=== PATIENT | female | born 1965 | race African-American/Black ===

== ENCOUNTER 2018-12-22 16:29 | Inpatient (IN) | payer MEDICAID, OTHER ==
[~2018-12-22] VITALS: Ht 185.4 cm; Wt 75.3 kg
[2018-12-22] MEDS ORDERED: METHYLPREDNISOLONE SOD SUCC 125 MG/2 ML VIAL IV STA (18:13)
[2018-12-22] MEDS ORDERED: LEVOFLOXACIN 750MG PREMIX 150 ML IV ONE (18:15)
[2018-12-22] MEDS ORDERED: IPRATROPIUM/ALBUTEROL 0.5-3(2.5)MG/3ML NEB HHN ONE (18:15)
[2018-12-22 19:49] LABS: BASOPHILS % 0.6 % (0.0-2.0); EOSINOPHILS % 2.2 % (0.0-5.0); HEMATOCRIT. 39.1 % (36.0-48.0); HEMOGLOBIN. 12.8 g/dL (12.0-16.0); LYMPHOCYTES % 31.8 % (20.0-50.0); MEAN CORPUSCULAR HEMOGLOBIN 28.6 pg (28.0-32.0); MEAN CORPUSCULAR VOLUME 87.6 fL (81.0-99.0); MEAN PLATELET VOLUME 7.7 fl (7.4-10.4); MONOCYTES % 7.5 % (2.0-8.0); NEUTROPHILS % 57.9 % (40.0-76.0); PLATELET 281 x1000/uL (130-400); RED BLOOD CELL COUNT 4.46 mill/uL (4.2-5.4); RED CELL DISTRIBUTION WIDTH 14.1 % (11.6-14.6)
[2018-12-22 19:55] LABS: CHLORIDE 108 mEq/L (98-107)
[2018-12-22 19:56] LABS: PROTHROMBIN TIME 10.7 sec (9.6-11.0)
[2018-12-22 20:00] LABS: CLARITY URINE CLEAR (CLEAR); COLOR URINE YELLOW (YELLOW); KETONES URINE NEGATIVE (NEGATIVE); LEUKOCYTE ESTERASE URINE 2+ (NEGATIVE); NITRITE URINE NEGATIVE (NEGATIVE); OCCULT BLOOD URINE NEGATIVE (NEGATIVE); PH URINE 5.5 (4.5-8.0); PROTEIN URINE NEGATIVE (NEGATIVE); SPECIFIC GRAVITY URINE 1.015 (1.005-1.030)
[2018-12-22 20:02] LABS: ETHANOL BLOOD < 10 mg/dL
[2018-12-22 20:37] LABS: *AMPHETAMINES SCREEN URINE NEGATIVE (NEGATIVE); *BARBITURATES SCREEN URINE NEGATIVE (NEGATIVE); *BENZODIAZEPINES SCREEN URINE NEGATIVE (NEGATIVE); *COCAINE SCREEN URINE NEGATIVE (NEGATIVE); METHADONE URINE SCREEN NEGATIVE (NEGATIVE)
[2018-12-22 20:38] LABS: CANNABINOID URINE SCREEN NEGATIVE (NEGATIVE); OPIATES URINE SCREEN NEGATIVE (NEGATIVE); PHENCYCLIDINE URINE SCREEN NEGATIVE (NEGATIVE)
[2018-12-22] MEDS ORDERED: MORPHINE SULFATE 4 MG/ML CPJ (NOT FOR IM USE) IV ONE (22:30)
[2018-12-22] MEDS ORDERED: ONDANSETRON HCL 4MG/2ML INJ IV ONE (22:30)
[2018-12-23 00:45] VITALS: BP 142/77
[2018-12-23 01:00] VITALS: BP 142/77
[2018-12-23] MEDS ORDERED: ALBU90AE INH (01:59)
[2018-12-23] MEDS ORDERED: OMEP20CA5 PO (01:59)
[2018-12-23] MEDS ORDERED: BECL10.62 INH (01:59)
[2018-12-23] MEDS ORDERED: POLY17PO3 MT (01:59)
[2018-12-23] MEDS ORDERED: GABA-531 PO (01:59)
[2018-12-23 04:00] VITALS: BP 134/78
[2018-12-23] MEDS ORDERED: DEXTROSE 50% WATER 50ML SYRINGE IV PRN (05:15)
[2018-12-23] MEDS ORDERED: IPRATROPIUM/ALBUTEROL 0.5-3(2.5)MG/3ML NEB HHN PRN (05:15)
[2018-12-23] MEDS: METHYLPREDNISOLONE SOD SUCC 40 MG/ML VIAL IV SCH ×3 (05:32→20:43)
[2018-12-23] MEDS: HYDROCODONE/ACETAMINOPHEN 5/325MG TABLET PO PRN ×2 (05:38→09:36)
[2018-12-23] MEDS: BLOOD SUGAR DIAGNOSTIC STRIP TEST SCH ×4 (06:45→20:53)
[2018-12-23] MEDS: PANTOPRAZOLE 40MG DR TABLET PO SCH (06:45)
[2018-12-23] MEDS: INSULIN LISPRO 100 UNITS/ML SUBCUT SCH ×4 (06:46→20:53)
[2018-12-23 08:00] VITALS: BP 128/71
[2018-12-23] MEDS: ENOXAPARIN 40MG/0.4ML SYR SUBCUT SCH (08:50)
[2018-12-23] MEDS ORDERED: REGADENOSON 0.4 MG/5 ML IV NR (09:30)
[2018-12-23] MEDS ORDERED: REGADENOSON 0.4 MG/5 ML IV ONE (11:11)
[2018-12-23 13:55] LABS: CREATINE KINASE 102 IU/L (26-192)
[2018-12-23 16:41] VITALS: BP 146/84
[2018-12-23 18:29] LABS: CREATINE KINASE MB FRACTION < 1.0 ng/mL (0.5-3.6)
[2018-12-23 20:00] VITALS: BP 119/72
[2018-12-23] MEDS ORDERED: IBUP-2030 MT (20:26)
[2018-12-24] VITALS: BP 122/72
[2018-12-24 00:50] LABS: CREATINE KINASE 79 IU/L (26-192)
[2018-12-24 04:00] VITALS: BP 122/74
[2018-12-24] MEDS: HYDROCODONE/ACETAMINOPHEN 5/325MG TABLET PO PRN (04:49)
[2018-12-24] MEDS: METHYLPREDNISOLONE SOD SUCC 40 MG/ML VIAL IV SCH ×2 (06:25→13:54)
[2018-12-24] MEDS: PANTOPRAZOLE 40MG DR TABLET PO SCH (06:25)
[2018-12-24] MEDS: INSULIN LISPRO 100 UNITS/ML SUBCUT SCH ×2 (06:45→12:40)
[2018-12-24] MEDS: BLOOD SUGAR DIAGNOSTIC STRIP TEST SCH ×2 (06:45→12:10)
[2018-12-24 08:00] VITALS: BP 122/77
[2018-12-24] MEDS: ENOXAPARIN 40MG/0.4ML SYR SUBCUT SCH (08:22)
[2018-12-24] MEDS: ACETAMINOPHEN 325MG TABLET PO PRN ×2 (10:49→16:19)
[2018-12-24 12:00] VITALS: BP 137/76
[2018-12-24 12:42] VITALS: BP 136/85
[2018-12-25] MEDS ORDERED: FAMOTIDINE 20MG TABLET PO SCH (09:00)
== END 2018-12-24 16:52 | disposition home or self-care (01) | DRG 198 ==
LOC: ER 16:29 → 8WST 22:19 → EDBEDREQ 22:24 → EDBEDREQTM 22:24 → ENRESERV 23:38
PROVIDERS: ADMIT Internal Medicine; ATTEND Internal Medicine
DX: I24.9 Acute ischemic heart disease, unspecified (principal); J43.9 Emphysema, unspecified; M06.9 Rheumatoid arthritis, unspecified; Z79.51 Long term (current) use of inhaled steroids; Z87.891 Personal history of nicotine dependence; Z79.899 Other long term (current) drug therapy
CPT/HCPCS: 36415; 71045; 78452; 80061; 80305; 80320; 81003; 82550; 82553; 82962; 83605; 83735; 83880; 84443; 84484; 93005; 93017; 93306; 94640; 99285; A9500; J1650; J1956; J2270; J2405; J2785; J2920; J2930; J7620; G0480

== ENCOUNTER 2018-12-28 08:18 | Inpatient (IN) | payer MEDICAID ==
[~2018-12-28] VITALS: Ht 185.4 cm; Wt 74.8 kg
[~2018-12-28 08:18] MED LIST: ALBU90AE INH; BECL10.62 INH; GABA-531 PO; IBUP-2030 MT; OMEP20CA5 PO; POLY17PO3 MT
[2018-12-28] MEDS ORDERED: IPRATROPIUM BROMIDE (0.02%) 0.5MG/2.5ML NEB HHN STA (08:21)
[2018-12-28] MEDS ORDERED: METHYLPREDNISOLONE SOD SUCC 125 MG/2 ML VIAL IV STA (08:21)
[2018-12-28] MEDS ORDERED: ALBUTEROL (0.083%) 2.5MG/3ML NEB HHN STA (08:21)
[2018-12-28 08:46] LABS: BASOPHILS % 1.5 % (0.0-2.0); EOSINOPHILS % 3.1 % (0.0-5.0); HEMATOCRIT. 37.9 % (36.0-48.0); HEMOGLOBIN. 12.6 g/dL (12.0-16.0); LYMPHOCYTES % 38.4 % (20.0-50.0); MEAN CORPUSCULAR HEMOGLOBIN 28.7 pg (28.0-32.0); MEAN CORPUSCULAR VOLUME 86.4 fL (81.0-99.0); MEAN PLATELET VOLUME 7.2 fl (7.4-10.4); MONOCYTES % 7.2 % (2.0-8.0); NEUTROPHILS % 49.8 % (40.0-76.0); PLATELET 277 x1000/uL (130-400); RED BLOOD CELL COUNT 4.38 mill/uL (4.2-5.4); RED CELL DISTRIBUTION WIDTH 14.4 % (11.6-14.6)
[2018-12-28 09:11] LABS: CHLORIDE 109 mEq/L (98-107)
[2018-12-28] MEDS ORDERED: MAGNESIUM 2 G PREMIX 50 ML IV STA (10:16)
[2018-12-28] MEDS ORDERED: BUDESONIDE 0.5MG/2ML NEB HHN SCH (12:00)
[2018-12-28] MEDS ORDERED: ONDANSETRON HCL 4MG/2ML INJ IV PRN (12:00)
[2018-12-28] MEDS ORDERED: IPRATROPIUM/ALBUTEROL 0.5-3(2.5)MG/3ML NEB HHN PRN (12:00)
[2018-12-28] MEDS ORDERED: IPRATROPIUM/ALBUTEROL 0.5-3(2.5)MG/3ML NEB HHN SCH (12:00)
[2018-12-28 16:00] VITALS: BP 137/73
[2018-12-28 16:43] VITALS: BP 137/73
[2018-12-28] MEDS ORDERED: MONTELUKAST SODIUM 10MG TABLET PO SCH (19:00)
[2018-12-28] MEDS: GABAPENTIN 300MG CAPSULE PO SCH (23:09)
[2018-12-28] MEDS: ENOXAPARIN 40MG/0.4ML SYR SUBCUT SCH (23:10)
[2018-12-28] MEDS: ACETAMINOPHEN 325MG TABLET PO PRN (23:15)
[2018-12-29] VITALS: BP 112/67
[2018-12-29] MEDS: BUDESONIDE 0.5MG/2ML NEB HHN SCH ×3 (00:22→21:18)
[2018-12-29] MEDS: IPRATROPIUM/ALBUTEROL 0.5-3(2.5)MG/3ML NEB HHN SCH ×6 (00:23→21:19)
[2018-12-29 04:00] VITALS: BP 110/60
[2018-12-29 05:51] LABS: BASOPHILS % 0.4 % (0.0-2.0); HEMATOCRIT. 38.3 % (36.0-48.0); HEMOGLOBIN. 12.6 g/dL (12.0-16.0); LYMPHOCYTES % 8.6 % (20.0-50.0); MEAN CORPUSCULAR HEMOGLOBIN 28.6 pg (28.0-32.0); MEAN CORPUSCULAR VOLUME 86.9 fL (81.0-99.0); MEAN PLATELET VOLUME 7.9 fl (7.4-10.4); MONOCYTES % 5.3 % (2.0-8.0); NEUTROPHILS % 85.7 % (40.0-76.0); PLATELET 306 x1000/uL (130-400); RED CELL DISTRIBUTION WIDTH 14.8 % (11.6-14.6)
[2018-12-29 06:03] LABS: CHLORIDE 108 mEq/L (98-107)
[2018-12-29 07:46] VITALS: BP 120/70
[2018-12-29] MEDS: ACETAMINOPHEN 325MG TABLET PO PRN (10:08)
[2018-12-29 12:00] VITALS: BP 100/75
[2018-12-29 16:00] VITALS: BP 118/68
[2018-12-29 20:00] VITALS: BP 99/55
[2018-12-29] MEDS: GABAPENTIN 300MG CAPSULE PO SCH (21:12)
[2018-12-29] MEDS: ENOXAPARIN 40MG/0.4ML SYR SUBCUT SCH (21:13)
[2018-12-30] VITALS: BP 94/55
[2018-12-30] MEDS: IPRATROPIUM/ALBUTEROL 0.5-3(2.5)MG/3ML NEB HHN SCH ×7 (00:25→23:53)
[2018-12-30 04:00] VITALS: BP 124/79
[2018-12-30 06:53] LABS: BASOPHILS % 0.3 % (0.0-2.0); EOSINOPHILS % 1.4 % (0.0-5.0); HEMATOCRIT. 37.3 % (36.0-48.0); HEMOGLOBIN. 12.4 g/dL (12.0-16.0); LYMPHOCYTES % 34.5 % (20.0-50.0); MEAN CORPUSCULAR HEMOGLOBIN 28.8 pg (28.0-32.0); MEAN CORPUSCULAR VOLUME 86.7 fL (81.0-99.0); MEAN PLATELET VOLUME 7.7 fl (7.4-10.4); MONOCYTES % 6.7 % (2.0-8.0); NEUTROPHILS % 57.1 % (40.0-76.0); PLATELET 288 x1000/uL (130-400); RED CELL DISTRIBUTION WIDTH 14.8 % (11.6-14.6)
[2018-12-30 08:00] VITALS: BP 101/65
[2018-12-30 08:22] LABS: CHLORIDE 107 mEq/L (98-107)
[2018-12-30] MEDS: BUDESONIDE 0.5MG/2ML NEB HHN SCH ×2 (10:33→19:57)
[2018-12-30 11:27] VITALS: BP 117/77
[2018-12-30 15:57] VITALS: BP 100/54
[2018-12-30] MEDS: HYDROCODONE/ACETAMINOPHEN 5/325MG TABLET PO PRN (16:54)
[2018-12-30 20:00] VITALS: BP 108/59
[2018-12-30] MEDS: GABAPENTIN 300MG CAPSULE PO SCH (21:26)
[2018-12-30] MEDS: ENOXAPARIN 40MG/0.4ML SYR SUBCUT SCH (21:26)
[2018-12-31] VITALS: BP 115/75
[2018-12-31] MEDS: HYDROCODONE/ACETAMINOPHEN 5/325MG TABLET PO PRN (03:30)
[2018-12-31 04:00] VITALS: BP 114/71
[2018-12-31] MEDS: IPRATROPIUM/ALBUTEROL 0.5-3(2.5)MG/3ML NEB HHN SCH ×4 (04:01→16:27)
[2018-12-31 08:00] VITALS: BP 110/71
[2018-12-31] MEDS: BUDESONIDE 0.5MG/2ML NEB HHN SCH (09:29)
[2018-12-31 10:29] LABS: BASOPHILS % 0.6 % (0.0-2.0); EOSINOPHILS % 2.4 % (0.0-5.0); HEMATOCRIT. 37.7 % (36.0-48.0); HEMOGLOBIN. 12.5 g/dL (12.0-16.0); MEAN CORPUSCULAR HEMOGLOBIN 28.9 pg (28.0-32.0); MEAN CORPUSCULAR VOLUME 87.3 fL (81.0-99.0); MEAN PLATELET VOLUME 7.6 fl (7.4-10.4); PLATELET 290 x1000/uL (130-400); RED BLOOD CELL COUNT 4.31 mill/uL (4.2-5.4); RED CELL DISTRIBUTION WIDTH 14.7 % (11.6-14.6)
[2018-12-31 11:10] LABS: CHLORIDE 108 mEq/L (98-107)
[2018-12-31 12:00] VITALS: BP 123/80
[2018-12-31 16:00] VITALS: BP 105/64
[2018-12-31 18:13] VITALS: BP 105/64
[2018-12-31 19:08] LABS: ANTI-NUCLEAR ANTIBODIES DIRECT Negative (Negative)
[2019-01-01 13:06] LABS: ANTI-MYELOPEROXIDASE AB < 9.0 U/mL (0.0-9.0); ANTI-PROTEINASE 3 ABS 5.3 U/mL (0.0-3.5); ATYPICAL P-ANCA <1:20 titer (Neg:<1:20); CYTOPLASMIC C-ANCA <1:20 titer (Neg:<1:20); PERINUCLEAR P-ANCA <1:20 titer (Neg:<1:20)
== END 2018-12-31 19:10 | disposition home or self-care (01) | DRG 140 ==
LOC: ER 08:18 → 7WST 10:26 → ENRESERV 15:29
PROVIDERS: ADMIT Internal Medicine; ATTEND Internal Medicine
DX: J44.1 Chronic obstructive pulmonary disease with (acute) exacerbation (principal); J96.02 Acute respiratory failure with hypercapnia; E87.8 Other disorders of electrolyte and fluid balance, not elsewhere classified; M94.0 Chondrocostal junction syndrome [Tietze]; G62.9 Polyneuropathy, unspecified; I10 Essential (primary) hypertension; I77.6 Arteritis, unspecified; K21.9 Gastro-esophageal reflux disease without esophagitis; M19.90 Unspecified osteoarthritis, unspecified site; Z87.891 Personal history of nicotine dependence
CPT/HCPCS: 36415; 71045; 80048; 83520; 83880; 84484; 84550; 86038; 86256; 86431; 93005; 94618; 94640; 94644; 99285; J1650; J2930; J3475; J7611; J7620; J7626

== ENCOUNTER 2019-02-06 01:16 | Emergency (ER) | payer MEDICAID ==
[~2019-02-06] VITALS: Ht 170.2 cm; Wt 73.0 kg
[2019-02-06] MEDS ORDERED: IPRATROPIUM BROMIDE (0.02%) 0.5MG/2.5ML NEB HHN STA ×2 (02:20→03:47)
[2019-02-06] MEDS ORDERED: ALBUTEROL (0.083%) 2.5MG/3ML NEB HHN STA ×2 (02:20→03:47)
[2019-02-06] MEDS ORDERED: METHYLPREDNISOLONE SOD SUCC 125 MG/2 ML VIAL IV STA (02:20)
[2019-02-06 06:02] VITALS: BP 121/74
== END 2019-02-06 06:03 | disposition home or self-care (01) ==
LOC: ER 01:16
DX: J45.901 Unspecified asthma with (acute) exacerbation (principal); Z87.891 Personal history of nicotine dependence
CPT/HCPCS: 71045; 94640; 96374; 99284; J2930; J7611; Z7610